=== PATIENT | female | born 1990 | race Caucasian/White ===

== ENCOUNTER → 2021-05-14 15:42 | Outpatient (CLI) | payer BC, SELFPAY ==
[2021-05-14 17:07] LABS: Absolute Lymphocyte Count 2.66 X10^3/uL (0.83-4.51); Absolute Neutrophil Count 4.5 X10^3/uL (2.0-7.7); Basophil# 0.03 X10^3/uL; Basophil% 0.4 % (0-1); Eosinophil# 0.09 X10^3/uL; Eosinophils% 1.1 % (0-5); Hematocrit 40.8 % (37-47); Hemoglobin 12.7 g/dL (12.0-15.0); Lymphocyte # 2.66 X10^3/ul (0.83-4.51); Lymphocyte % 33.5 % (19-41); Mean Corp Hgb Conc 31.1 g/dL (32-36); Mean Corpuscular Hgb 26.9 pg (27.0-32.0); Mean Corpuscular Volume 86.4 fL (81-99); Monocyte# 0.62 X10^3/uL; Monocyte% 7.8 % (0-10); NRBC Flagged by Analyzer 0 % (0-5); Neutrophil # 4.51 X10^3/uL (2.7-7.7); Neutrophil % 56.8 % (47-70); Platelet Count 313 K/mm3 (150-450); RBC Distribution Width CV 12.4 % (11.6-14.6); RBC Distribution Width SD 39.8 fl (35.1-43.9); Red Blood Count 4.72 M/mm3 (4.2-5.4); White Blood Count 7.9 K/mm3 (4.4-11.0)
[2021-05-14 17:33] LABS: ALB/GLOB Ratio 0.9 RATIO (0.9-2.4); AST(SGOT) 11 U/L (15-37); Alanine Aminotransfer ALT/SGPT 17 U/L (13-56); Albumin, Serum 3.6 g/dL (3.2-5.0); Alkaline Phosphatase 51 U/L (45-117); Anion Gap 4 (5-15); BUN 9 mg/dL (7-18); BUN/Creat Ratio 12.6 RATIO (10-20); Calcium,Total 8.8 mg/dL (8.5-10.1); Chloride 106 mmol/L (98-107); Cholesterol 169 mg/dL (200); Creatinine, Serum 0.71 mg/dL (0.55-1.02); EST Glomerular Filtration Rate 103 mL/min (>60); Est Glom Filt Rate - Afr Amer 125 mL/min (>60); Globulin 4.2 g/dL (2.2-4.2); Glucose 88 mg/dL (74-106); High Density Lipoprotein 58 mg/dL; Potassium 3.7 mmol/L (3.5-5.1); Protein, Total 7.8 g/dL (6.4-8.2); Sodium Level 138 mmol/L (136-145); Triglycerides 135 mg/dL; Very Low Density Lipoprotein 27 mg/dL (5-40)
== END ==
PROVIDERS: PCP Internal Medicine; Referring Provider Internal Medicine; Visit Provider Internal Medicine
DX: J30.2 Other seasonal allergic rhinitis (principal); E66.9 Obesity, unspecified
CPT/HCPCS: 36415; 80053; 80061; 85025

== ENCOUNTER → 2021-11-11 | Outpatient (CLI) | payer BC, SELFPAY ==
[2021-11-11 15:14] LABS: Absolute Lymphocyte Count 3.19 X10^3/uL (0.83-4.51); Absolute Neutrophil Count 6.1 X10^3/uL (2.0-7.7); Basophil# 0.03 X10^3/uL; Basophil% 0.3 % (0-1); Eosinophil# 0.05 X10^3/uL; Eosinophils% 0.5 % (0-5); Hematocrit 39.4 % (37-47); Hemoglobin 12.9 g/dL (12.0-15.0); Lymphocyte # 3.19 X10^3/ul (0.83-4.51); Lymphocyte % 32.1 % (19-41); Mean Corp Hgb Conc 32.7 g/dL (32-36); Mean Corpuscular Hgb 27.8 pg (27.0-32.0); Mean Corpuscular Volume 84.9 fL (81-99); Mean Platelet Vol. 11.5 fl (6.2-12.0); Monocyte# 0.57 X10^3/uL; Monocyte% 5.7 % (0-10); NRBC Flagged by Analyzer 0 % (0-5); Neutrophil # 6.07 X10^3/uL (2.7-7.7); Neutrophil % 61.1 % (47-70); Platelet Count 310 K/mm3 (150-450); RBC Distribution Width CV 12.8 % (11.6-14.6); RBC Distribution Width SD 39.3 fl (35.1-43.9); Red Blood Count 4.64 M/mm3 (4.2-5.4); White Blood Count 9.9 K/mm3 (4.4-11.0)
[2021-11-11 16:08] LABS: Thyroid Stim Hormone (TSH) 2.16 uIU/mL (0.358-3.74)
[2021-11-11 16:11] LABS: Vitamin D,25 Hydroxy 28.8 ng/mL
[2021-11-14 15:41] LABS: HPV Reflexed? NOT INDICATED
== END | disposition home or self-care (01) ==
LOC: PAVLAB 14:48
PROVIDERS: PCP Internal Medicine; Referring Provider Nurse Practitioner Women's Health; Visit Provider Nurse Practitioner Women's Health
DX: R53.83 Other fatigue (principal); Z12.4 Encounter for screening for malignant neoplasm of cervix; Z13.29 Encounter for screening for other suspected endocrine disorder
CPT/HCPCS: 36415; 82306; 84443; 85025; 88175; G0145

== ENCOUNTER → 2022-05-30 | Outpatient (CLI) | payer BC, SELFPAY ==
--- NOTE | 2022-05-30 16:00 | RAD_ITS ---
INDICATION: low back pain EXAMINATION/TECHNIQUE: X-RAY - XR Spine Lumbar 2 or 3 Views COMPARISON: None. FINDINGS: VERTEBRAE: Preserved vertebral body height. No fracture. No spondylolisthesis. Exaggerated lumbar lordosis. No significant facet arthropathy. DISCS: Disc spaces are maintained. INCLUDED ABDOMEN: Included bowel gas pattern is non-obstructive. RAD/Lumbar Spine 2 or 3 Views IMPRESSION: Exaggerated lumbar lordosis possibly due to muscle spasm.. No acute fracture or other significant bony pathology Electronically Signed: Reginaldo Haro MD at 21:51 EST ,
--- NOTE | 2022-05-30 16:01 | RAD_ITS ---
INDICATION: right knee pain EXAMINATION/TECHNIQUE: X-RAY - RIGHT XR Knee Complete 4 Views or More 4 VIEWS COMPARISON: None. FINDINGS: SOFT TISSUES: No soft tissue swelling or gas. No radiopaque foreign body. BONES/JOINTS: No acute fracture or subluxation.. Normal alignment. Preservation of the joint space.. No sclerotic or destructive changes observed. RAD/Knee 4 or More Views IMPRESSION: Unremarkable examination. Electronically Signed: Craig Fallon MD at 10:44 EST ,
== END | disposition home or self-care (01) ==
LOC: RAD 16:01
PROVIDERS: PCP Internal Medicine; Visit Provider Physician Assistant
DX: M25.561 Pain in right knee (principal); M54.50 Low back pain, unspecified
CPT/HCPCS: 72100; 73564

== ENCOUNTER → 2022-08-07 | Outpatient (CLI) | payer BC, SELFPAY ==
[2022-08-11 01:06] LABS: Chlamydia By Nucleic Acid AMP Negative (Negative)
[2022-08-11 12:26] LABS: Gonococcus By Nucleic Acid AMP Negative (Negative)
== END | disposition home or self-care (01) ==
LOC: LABSPEC 16:39
PROVIDERS: PCP Internal Medicine; Visit Provider Obstetrics & Gynecology
DX: O09.90 Supervision of high risk pregnancy, unspecified, unspecified trimester (principal); Z3A.00 Weeks of gestation of pregnancy not specified
CPT/HCPCS: 87086; 87088; 87491; 87591

== ENCOUNTER → 2022-09-03 | Outpatient (CLI) | payer BC, SELFPAY ==
[2022-09-03 15:18] LABS: Absolute Lymphocyte Count 2.48 X10^3/uL (0.83-4.51); Absolute Neutrophil Count 6.6 X10^3/uL (2.0-7.7); Basophil# 0.02 X10^3/uL; Basophil% 0.2 % (0-1); Eosinophil# 0.08 X10^3/uL; Eosinophils% 0.8 % (0-5); Hematocrit 36.6 % (37-47); Hemoglobin 11.5 g/dL (12.0-15.0); Lymphocyte # 2.48 X10^3/ul (0.83-4.51); Lymphocyte % 25.3 % (19-41); Mean Corp Hgb Conc 31.4 g/dL (32-36); Mean Corpuscular Hgb 27.4 pg (27.0-32.0); Mean Corpuscular Volume 87.4 fL (81-99); Mean Platelet Vol. 11.9 fl (6.2-12.0); Monocyte# 0.63 X10^3/uL; Monocyte% 6.4 % (0-10); NRBC Flagged by Analyzer 0 % (0-5); Neutrophil # 6.56 X10^3/uL (2.7-7.7); Neutrophil % 66.9 % (47-70); Platelet Count 264 K/mm3 (150-450); RBC Distribution Width CV 13.2 % (11.6-14.6); RBC Distribution Width SD 42.2 fl (35.1-43.9); Red Blood Count 4.19 M/mm3 (4.2-5.4); White Blood Count 9.8 K/mm3 (4.4-11.0)
[2022-09-03 16:00] LABS: Glucose Challenge Gest 1H 50g 113 mg/dL (70-140)
[2022-09-03 17:26] LABS: HIV - WCH Non-Reactive (Nonreactive); Hepatitis B Surface Antigen Non-Reactive (Nonreactive); Hepatitis C Antibody Non-Reactive (Nonreactive); Rubella IgG Reactive (Nonreactive); Syphilis Antibodies Non-reactive
== END | disposition home or self-care (01) ==
LOC: PAVLAB 14:45
PROVIDERS: PCP Internal Medicine; Referring Provider Obstetrics & Gynecology; Visit Provider Obstetrics & Gynecology
DX: O09.90 Supervision of high risk pregnancy, unspecified, unspecified trimester (principal); Z3A.00 Weeks of gestation of pregnancy not specified; Z13.1 Encounter for screening for diabetes mellitus
CPT/HCPCS: 36415; 82950; 85025; 86703; 86762; 86780; 86803; 86850; 86900; 86901; 87340

== ENCOUNTER → 2022-12-09 | Outpatient (CLI) | payer BC, SELFPAY ==
[2022-12-09 15:37] LABS: Absolute Lymphocyte Count 2.02 X10^3/uL (0.83-4.51); Absolute Neutrophil Count 7.8 X10^3/uL (2.0-7.7); Basophil# 0.03 X10^3/uL; Basophil% 0.3 % (0-1); Eosinophil# 0.06 X10^3/uL; Eosinophils% 0.6 % (0-5); Hematocrit 32.5 % (37-47); Hemoglobin 10.3 g/dL (12.0-15.0); Lymphocyte # 2.02 X10^3/ul (0.83-4.51); Lymphocyte % 19.1 % (19-41); Mean Corp Hgb Conc 31.7 g/dL (32-36); Mean Corpuscular Hgb 28.8 pg (27.0-32.0); Mean Corpuscular Volume 90.8 fL (81-99); Mean Platelet Vol. 11.1 fl (6.2-12.0); Monocyte# 0.61 X10^3/uL; Monocyte% 5.8 % (0-10); NRBC Flagged by Analyzer 0 % (0-5); Neutrophil # 7.77 X10^3/uL (2.7-7.7); Neutrophil % 73.5 % (47-70); Platelet Count 273 K/mm3 (150-450); RBC Distribution Width CV 13.7 % (11.6-14.6); RBC Distribution Width SD 46.2 fl (35.1-43.9); Red Blood Count 3.58 M/mm3 (4.2-5.4); White Blood Count 10.6 K/mm3 (4.4-11.0)
[2022-12-09 15:49] LABS: Glucose Challenge Gest 1H 50g 125 mg/dL (70-140)
[2022-12-09 16:52] LABS: HIV - WCH Non-Reactive (Nonreactive); Syphilis Antibodies Non-reactive
== END | disposition home or self-care (01) ==
PROVIDERS: Nurse Practitioner Women's Health; PCP Internal Medicine; Referring Provider Obstetrics & Gynecology; Visit Provider Obstetrics & Gynecology
DX: Z34.90 Encounter for supervision of normal pregnancy, unspecified, unspecified trimester (principal)
CPT/HCPCS: 36415; 82950; 85025; 86703; 86780

== ENCOUNTER → 2022-12-18 | Outpatient (CLI) | payer BC, SELFPAY ==
--- NOTE | 2022-12-18 16:18 | US_ITS ---
INDICATION: Placental location -- 28 Weeks. Evaluate placenta previa. EXAMINATION: US OB Limited 1 Or More Fetus TECHNIQUE: Transabdominal and transvaginal (for optimal evaluation of the fetus) pelvic limited obstetric ultrasound was performed. COMPARISON: None. FINDINGS: Single live intrauterine fetus in breech presentation with heart rate of 136 BPM. Posterior placenta appears intact with no placenta previa. Inferior edge of placenta measures 2.7 cm distance from internal cervical os. Cervix is closed, measuring 3.6 cm length. Amniotic fluid volume within normal limits, deepest vertical pocket measuring 4.1 cm. Maternal adnexa not imaged. biometrics and anatomic survey was not performed. Estimated gestational age of 28 weeks 3 days based on prior dating, with ALLAN of 03/09/2023. US/OB Limited (No Biometrics) IMPRESSION: Single live intrauterine fetus in breech presentation with no placenta previa. Electronically Signed: Roberto Kraft MD at 6:30 EDT ,
== END | disposition home or self-care (01) ==
LOC: US 16:16
PROVIDERS: PCP Internal Medicine; Referring Provider Obstetrics & Gynecology; Visit Provider Obstetrics & Gynecology
DX: O44.03 Complete placenta previa NOS or without hemorrhage, third trimester (principal); Z3A.28 28 weeks gestation of pregnancy
CPT/HCPCS: 76815

== ENCOUNTER → 2023-01-13 | Outpatient (CLI) | payer BC, SELFPAY ==
[2023-01-13 17:01] LABS: Absolute Neutrophil Count 7.9 X10^3/uL (2.0-7.7); Basophil# 0.02 X10^3/uL; Basophil% 0.2 % (0-1); Eosinophil# 0.08 X10^3/uL; Eosinophils% 0.7 % (0-5); Hematocrit 34.6 % (37-47); Hemoglobin 11.2 g/dL (12.0-15.0); Lymphocyte % 20.3 % (19-41); Mean Corp Hgb Conc 32.4 g/dL (32-36); Mean Corpuscular Hgb 28.8 pg (27.0-32.0); Mean Corpuscular Volume 88.9 fL (81-99); Mean Platelet Vol. 11.8 fl (6.2-12.0); Monocyte# 0.93 X10^3/uL; Monocyte% 8.2 % (0-10); NRBC Flagged by Analyzer 0 % (0-5); Neutrophil # 7.91 X10^3/uL (2.7-7.7); Neutrophil % 69.9 % (47-70); Platelet Count 274 K/mm3 (150-450); RBC Distribution Width CV 13.7 % (11.6-14.6); RBC Distribution Width SD 44.2 fl (35.1-43.9); Red Blood Count 3.89 M/mm3 (4.2-5.4); White Blood Count 11.3 K/mm3 (4.4-11.0)
== END | disposition home or self-care (01) ==
LOC: LAB 16:12
PROVIDERS: Nurse Practitioner Women's Health; PCP Internal Medicine; Referring Provider Obstetrics & Gynecology; Visit Provider Obstetrics & Gynecology
DX: D64.9 Anemia, unspecified (principal)
CPT/HCPCS: 36415; 85025

== ENCOUNTER → 2023-02-13 | Outpatient (CLI) | payer BC, SELFPAY | END | disposition home or self-care (01) | LOC: LABSPEC 16:19 | PROVIDERS: PCP Internal Medicine; Referring Provider Obstetrics & Gynecology; Visit Provider Obstetrics & Gynecology | DX: O09.90 Supervision of high risk pregnancy, unspecified, unspecified trimester (principal); Z3A.00 Weeks of gestation of pregnancy not specified | CPT/HCPCS: 87077; 87081; 87186 ==

== ENCOUNTER 2023-03-10 06:55 | Inpatient (IN) | payer BC, SELFPAY ==
[2023-03-10] VITALS (51 sets, daily range): BP systolic 101–135; BP diastolic 60–89; PULSE 63–116; TEMP 36.2–37.2; O2SAT 78–100; BMI 37.0
[2023-03-10] MEDS: Lactated Ringers 1,000 ML 50 ML IV (07:35)
[2023-03-10 07:58] LABS: Absolute Lymphocyte Count 2.43 X10^3/uL (0.83-4.51); Absolute Neutrophil Count 8.2 X10^3/uL (2.0-7.7); Basophil# 0.04 X10^3/uL; Basophil% 0.4 % (0-1); Eosinophil# 0.05 X10^3/uL; Eosinophils% 0.4 % (0-5); Hematocrit 35.4 % (37-47); Hemoglobin 11.2 g/dL (12.0-15.0); Lymphocyte # 2.43 X10^3/ul (0.83-4.51); Lymphocyte % 21.3 % (19-41); Mean Corp Hgb Conc 31.6 g/dL (32-36); Mean Corpuscular Hgb 28.2 pg (27.0-32.0); Mean Corpuscular Volume 89.2 fL (81-99); Mean Platelet Vol. 12.1 fl (6.2-12.0); Monocyte# 0.66 X10^3/uL; Monocyte% 5.8 % (0-10); NRBC Flagged by Analyzer 0 % (0-5); Neutrophil # 8.15 X10^3/uL (2.7-7.7); Neutrophil % 71.5 % (47-70); Platelet Count 231 K/mm3 (150-450); RBC Distribution Width CV 13.6 % (11.6-14.6); RBC Distribution Width SD 44.4 fl (35.1-43.9); Red Blood Count 3.97 M/mm3 (4.2-5.4); White Blood Count 11.4 K/mm3 (4.4-11.0)
--- NOTE | 2023-03-10 07:59 | HP.PCM.OB_ITS ---
HPI - General General Date of Admission: 03/10/23 Date of Service: 03/10/23 HPI Narrative SHAWNEE AHUJA, is a 32 F 40.1 weeks who presents for elective IOL Maternal Data Information ALLAN Calculator Estimated Delivery Date Method Current WG Current Estimate 03/09/23 LMP (Certain) 40w 1d Final ALLAN: 03/09/23 Final ALLAN Source: US >20 weeks Gestational age: 40.1 [facility] Medical History Anemia Obesity (BMI 30-39.9) Positive self-administered antigen test for COVID-19 Seasonal allergies Home Medications cetirizine 10 mg capsule (Zyrtec) 10 mg PO DAILY PRN allergies 05/14/21 [History Last Taken 03/09/23 19:00 10 mg] multivitamin (One Daily Multivitamin tablet) 1 tab PO DAILY 05/27/22 [History Last Taken 03/09/23 19:00 1 TAB] nystatin 100,000 unit/gram topical cream 1 applic topical BID #30 grams 02/16/23 [Rx Last Taken Unknown] aspirin 81 mg tablet,delayed release (Adult Low Dose Aspirin) 81 mg PO DAILY 03/10/23 [History Last Taken 03/09/23 19:00 81 mg] ferrous sulfate 325 mg (65 mg iron) tablet (Feosol) 325 mg PO DAILY anemia 03/10/23 [History Last Taken Unknown] polyethylene glycol 3350 17 gram oral powder packet (ClearLax) 17 g PO DAILY constipation 03/10/23 [History Last Taken 03/09/23 19:00 17 g] Allergy/AdvReac Type Severity Reaction Status Date / Time Penicillins Allergy Unknown Hives Verified 03/10/23 07:28 Family History Mother Heart disease Pacemaker Father Hypertension Grandmother Brain aneurysm Surgical History History of wisdom tooth extraction Social History adopted: No household members: spouse housing: house current occupational status: employed 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 pets and animals: Yes ( does litter box) pets and animals: cat(s) and dog(s) history of recent travel: No sexually active: Yes Smoking Status: Never smoker alcohol intake: current alcohol intake frequency: a few times a week details: not while pregnanct substance use type: does not use well-balanced diet: about half the time caffeine: Yes Type: coffee Number of servings: 1 eating out: 1-3 times/week what type of physical activity do you participate in: walking frequency: 1-2 times per week seatbelt use: always do you feel safe at home: Yes additional social history: - Rivera History 1 Elective abortions Hx Para 0 Spontaneous abortions Hx # Term Pregnancies Ectopic pregnancies Hx # Pregnancies Multiple births # of living children Visit Details Expected Delivery Route/Plan Labor Preferences- CB/BF classes: encouraged labor support person: Rivera labor intervention preferences: none pain management options preferred: epidural, may nitrous first cut cord/dad catch: maybe cord : yes PP control planned: nfp discussed possible routes of delivery and associated risks: discussed possible delivery modalities and possible indications for each including R/B/A of , VAVD, and CS. questions answered. special requests: none Plans Covid status: discussed Flu vaccine: given Tdap vaccine: given Rhogam: na LARC form signed: declined movement and labor precautions reviewed. Problem list reviewed and updated with the most current plan of care details and appropriate orders placed. Relevant counseling for the gestational age provided. Continue routine care and follow up unless otherwise noted in visit notes/problem list details OB Flowsheet Initial Weight: Not Recorded Date -?-?-?-?-?-?-?-?-?-?-?-?- EGA Weight BP Urine Prot -?-?-?-?-?-?-?-?-?-?-?-?- Glucose FHR FuHt Pres Dilation -?-?-?-?-?-?-?-?-?-?-?-?- Effaced St Visit Note 08/07/22 -?-?-?-?-?-?-?-?-?-?-?-?- 9w 3d 210 lb 6 oz 125/85 -?-?-?-?-?-?-?-?-?--?-?-?- -?-?-?-?-?-?-?-?-?-?-?-?- SM- CRL cons wit h LMP 09/03/22 -?-?-?-?-?-?-?-?-?-?-?-?- 13w 2d 210 lb 2 oz 116/81 Nega tive -?-?-?-?-?-?-?-?-?-?-?-?- Negative 156 -?-?-?-?-?-?-?-?-?-?-?-?- LC- no vb/crampi ng. increasing GERD, has used tums, dietary changes. will use Prilosec LC- no vb/cramping. increasi ng GERD, has used tums, dietary changes. will use Prilosec as needed. will schedule anatomy scan. 10/15/22 -?-?-?-?-?-?-?-?-?-?-?-?- 19w 2d 210 lb 132/82 Negative -?-?-?-?-?-?-?-?-?-?-?-?- Negative 149 -?-?-?-?-?-?-?-?-?-?-?-?- MH-NO VB. No FM yet. MFM anatomy US tomorrow. Discussed need for baby ASA and growth US and agrees to proceed. 11/10/22 -?-?-?-?-?-?-?-?-?-?-?-?- 23w 0d 212 lb 4 oz 118/80 Nega tive -?-?-?-?-?-?-?-?-?-?-?-?- Negative 152 -?-?-?-?-?-?-?-?-?-?-?-?- MH-No Vb, LOF. G ood FM. Denies concerns 12/09/22 -?-?-?-?-?-?-?-?-?-?-?-?- 27w 1d 214 lb 4 oz 109/75 Nega tive -?-?-?-?-?-?-?-?-?-?-?-?- Negative 140 27 -?-?-?-?-?-?-?-?-?-?-?-?- SM- no vb lof go od fm no regular ctx 01/01/23 -?-?-?-?-?-?-?-?-?-?-?-?- 30w 3d 216 lb 6 oz 115/76 Nega tive -?-?-?-?-?-?-?-?-?-?-?-?- Negative 144 31 Breech -?-?-?-?-?-?-?-?-?-?-?-?- JV- no lof, vagi nal bleeding,or dec fm. resolved previa. has us for covid at 32 weeks we discussed canceling and keeping 36 weeks only. she will talk with . rpt cbc next visit 01/13/23 -?-?-?-?-?-?-?-?-?-?-?-?- 32w 1d 217 lb 4 oz 104/71 Nega tive -?-?-?-?-?-?-?-?-?-?-?-?- Negative 140 32 -?-?-?-?-?-?-?-?-?-?-?-?- SM- no vb lof go od fm no regular ctx took childbirth classes 02/04/23 -?-?-?-?-?-?-?-?-?-?-?-?- 35w 2d 220 lb 8 oz 119/78 Nega tive -?-?-?-?-?-?-?-?-?-?-?-?- Negative 140 36 Cephalic -?-?-?-?-?-?-?-?-?-?-?-?- JV- no lof, vagi nal bleeding, or dec fm, lots of hiccups, signed larc today. JV- no lof, vaginal bleeding , or dec fm, lots of hiccups, signed larc today. tdap 02/13/23 -?-?-?-?-?-?-?-?-?-?-?-?- 36w 4d 219 lb 113/77 -?-?-?-?-?-?-?-?-?-?-?-?- 140 37 Cephalic -?-?-?-?-?-?-?-?-?-?-?-?- Sm- no vb lof go od fm no regular ctx gbs done discussed delivery preferences 02/16/23 -?-?-?-?-?-?-?-?-?-?-?-?- 37w 0d 221 lb 2 oz 112/77 Nega tive -?-?-?-?-?-?-?--?-?-?-?-?- Negative 145 37 Cephalic -?-?-?-?-?-?-?-?-?-?-?-?- JV- declines pel widl exam today. has some yeast growth under breasts. no complaints other than some round ligament pain. Gbs is positive. 02/25/23 -?-?-?-?-?-?-?-?-?-?-?-?- 38w 2d 220 lb 2 oz 111/74 Nega tive -?-?-?-?-?-?-?-?-?-?-?-?- Negative 138 38 Cephalic 1 -?-?-?-?-?-?-?-?-?-?-?-?- 50 -3 LC-no vb/c tx/lof. good fm. job changed to start on the . would like an IOL if favorable on the . plan for membrane sweep next visit. 03/05/23 -?-?-?-?-?-?-?-?-?-?-?-?- 39w 3d 224 lb 2 oz 104/82 Trac e -?-?-?-?-?-?-?-?-?-?-?-?- Negative 140 39 Cephalic 2 -?-?-?-?-?-?-?-?-?-?-?-?- 60 -2 SM- no vb lof good fm no regular ctx discussed membrane sweeping NST FHR Rate Baby A Baseline: 145 Variability:: Moderate Accelerations:: 15 x 15 Decelerations:: None NST Reactive:: Yes FHR Category:: Category I Uterine Activity:: irregular ROS Constitutional Constitutional: Denies change in weight, fatigue, fever(s), headache(s), poor appetite or weakness Eyes Eyes: Denies blurry vision, change in vision, floaters, seeing flashes or spots in vision ENT HEENT: Denies dizziness, headache(s), loss taste/smell or sore throat Cardiovascular Cardiovascular: Denies chest pain, dizziness, dyspnea, irregular heart rhythm, lightheadedness, palpitations or rapid heart rate Respiratory/Chest Respiratory/Chest: Denies change in mental status, chest tightness, cough, dyspnea or breast pain Gastrointestinal Gastrointestinal: Denies anorexia, chewing difficulty, constipation, diarrhea or weight changes Genitourinary Genitourinary: Denies difficulty urinating, dysuria, flank pain, genital pain, urinary frequency or urinary urgency Musculoskeletal Musculoskeletal: Denies back pain, difficulty walking, extremity pain, joint pain, muscle cramps or muscle weakness Integumentary Integumentary: Denies lesions or unusual bruising Neurologic Neurologic: Denies abnormal movements, abnormal speech, dizziness, numbness, seizure-like activity, syncope or weakness Psychiatric Psychiatric: Denies behavioral changes, change in appetite, confusion, depression, homicidal ideation, suicidal ideation or suicidal thoughts Endocrine Endocrinology: Denies excessive sweating, polydipsia or polyuria Hematologic/Lymphatic Hematologic/Lymphatic: Denies anemia Allergic/Immunologic Allergic/Immunologic: Denies itchy eyes, lip swelling, throat swelling, tongue swelling or wheezing Vital Signs Vital Signs Vital Signs: 03/10/23 07:25 03/10/23 07:25 03/10/23 07:25 Pulse Rate 116 H Blood Pressure 123/84 H BP Systolic 123 BP Diastolic 84 Pulse Ox 81 Weight Weight: 222 lb 7.143 oz Body Mass Index (BMI) 37.0 Physical Exam Const alert, oriented x3 and no apparent distress General Appearance: cooperative Orientation / Consciousness: awake HEENT normocephalic Neck full ROM Lymph Lymphatic: no lymphadenopathy noted Chest inspection of chest normal Resp normal respiratory effort and normal air movement Effort and Inspection: able to speak in complete sentences and symmetric chest movement GI soft to palpation and non-tender Inspection: gravid Palpation: soft; Negative for tender external exam normal Manual OB Exam: presentation cephalic, dilated 3, effaced 70 and station - 2 Back/Spine normal to inspection Extremity normal to inspection and full ROM Skin no rashes or lesions noted Psych mental status grossly normal Appearance: grossly normal Speech: normal speech Labs Labs Labs: Blood Type O POSITIVE Antibody Screen NEGATIVE Hct 35.4 % (37-47) L Hgb 11.2 g/dL (12.0-15.0) L Obstetrics Ultrasound Syphilis Total Ab Non-reactive Rubella IgG Antibody Reactive (Nonreactive) Hep Bs Antigen Non-Reactive (Nonreactive) Hepatitis C Antibody Non-Reactive (Nonreactive) Chlamydia DNA (ANGE) Negative (Negative) N.gonorrhoeae DNA (ANGE) Negative (Negative) HIV 1&2 Antibody Non-Reactive (Nonreactive) Glucose 1 Hr 50 gm 125 mg/dL (70-140) Assessment & Plan (1) Elective induction of labor planned: PLAN: Patient presents IOL, plan management for with pitocin/AROM. Pain management: plans epidural. GBS positive- vanco. Management of any complications: none I have reviewed the [facility] and made any clinically relevant updates. (2) Positive GBS test: COMMENT: vanco in labor (3) Anemia: COMMENT: add Fe and recheck CBC in 4 wks/improved (4) Back pain: QUALIFIERS: Back pain location: low back pain Chronicity: acute Back pain laterality: right Sciatica presence: without sciatica Qualified Code(s): M54.50 - Low back pain, unspecified (5) Supervision of high risk , antepartum: COMMENT: [id number] ALLAN 03/09/23 girl Rivera (6) : QUALIFIERS: Weeks of gestation: 39 weeks Qualified Code(s): Z3A.39 - 39 weeks gestation of COMMENT: anatomy nl, bowel brightening noted. follow up/growth US in 4 weeks. NIPT and carrier screening declined. (7) Obesity affecting : COMMENT: 1hr GTT Charges/Coding Multi Select Codes Urinary/Genital Urinary/Genital CPT Codes: No Charge
[2023-03-10] MEDS: Oxytocin 15 Units/NS 250ml 15 UNITS/250 ML IV.SOLN 2 UNITS IV (08:25)
[2023-03-10] MEDS: Vancomycin HCl 2,000 MG in 0.9% Normal Saline (500mL Bag) 500 ML 250 MG IV ×2 (08:25→16:29)
[2023-03-10 09:00] LABS: Syphilis Antibodies Non-reactive
[2023-03-10] MEDS: LACTATED RINGERS 500 ML 999 ML IV (13:28)
[2023-03-10] MEDS: fentaNYL-bupivacaine (epidural) 100 ML BAG EPIDURAL ×3 (13:54→22:31)
--- NOTE | 2023-03-10 15:47 | PN_ITS ---
Progress Note comfortable with epidural current tracing: FHT: 1345 Moderate variability reactive no decelerations category I tracing [place]: 2-3 minute Contractions Membranes: AROM at 1540 clear fluid SVE: / reviewed tracing abnormalities since last note: none A/P: Continue with position changes Titrate pitocin per protocol Epidural per anesthesia Vancomycin for GBS prophylaxis Anticipate Dr Grissom aware of plan and agrees with plan of care Assessment & Plan Assessment/Plan (1) Elective induction of labor planned: (2) Positive GBS test: (3) Anemia: (4) Supervision of high risk , antepartum: (5) : QUALIFIERS: Weeks of gestation: 39 weeks Qualified Code(s): Z3A.39 - 39 weeks gestation of (6) Obesity affecting : Multi Select Codes Urinary/Genital Urinary/Genital CPT Codes: No Charge
[2023-03-10] MEDS: Lactated Ringers 1,000 ML 200 ML IV (18:10)
--- NOTE | 2023-03-10 19:32 | PCM.PN.BLA ---
Progress Note comfortable with epidural current tracing: FHT: 115 Moderate variability reactive early decelerations category I tracing IUPC: 1.5-2.5 minute Contractions Membranes: rupture SVE: 7/-1 A/P: Continue with position changes Titrate pitocin per protocol Epidural per anesthesia Vanco for GBS prophylaxis Anticipate Dr Grissom aware of plan and agrees with plan of care Assessment & Plan Assessment/Plan (1) Elective induction of labor planned: (2) Positive GBS test: (3) Anemia: (4) Supervision of high risk , antepartum: (5) : QUALIFIERS: Weeks of gestation: 39 weeks Qualified Code(s): Z3A.39 - 39 weeks gestation of (6) Obesity affecting : Multi Select Codes Urinary/Genital Urinary/Genital CPT Codes: No Charge
--- NOTE | 2023-03-10 20:01 | NURSING ---
intermittent catheterization.
[2023-03-10] MEDS: Mag Hydrox/Al Hydrox/Simeth 30 ML UDC PO (22:31)
[2023-03-10] MEDS: 0.9% Saline Lock 10 ML Syringe IV (23:01)
[2023-03-10] MEDS: Ondansetron 4 MG/2 ML Vial IV (23:01)
[2023-03-10] MEDS: Oxytocin 10 UNITS/ML Vial IM (23:32)
--- NOTE | 2023-03-10 23:54 | NURSING ---
kurtz cath was removed at 2318 per kwkellie MARTINEZ. 200 cc noted clear yellow urine. later, following delivery, [facility] another kurtz due to the nature of the tear. that kurtz placed at 2330 and will remain intact.
[2023-03-11] VITALS (35 sets, daily range): BP systolic 75–123; BP diastolic 43–82; PULSE 76–111; RESP 16–18; TEMP 36.2–37.7; O2SAT 94–100
[2023-03-11] MEDS: Oxytocin 15 Units/NS 250ml 15 UNITS/250 ML IV.SOLN 83 UNITS IV
--- NOTE | 2023-03-11 00:07 | EX.PCM.OBRPT ---
Assessment & Plan (1) Vaginal delivery: COMMENT: KW 40.1 Girl (2) Elective induction of labor planned: (3) Positive GBS test: COMMENT: vanco in labor (4) Anemia: COMMENT: add Fe and recheck CBC in 4 wks/improved (5) Supervision of high risk , antepartum: COMMENT: [id number] ALLAN 03/09/23 girl Rivera (6) : QUALIFIERS: Weeks of gestation: 39 weeks Qualified Code(s): Z3A.39 - 39 weeks gestation of COMMENT: anatomy nl, bowel brightening noted. follow up/growth US in 4 weeks. NIPT and carrier screening declined. (7) Obesity affecting : COMMENT: 1hr GTT Maternal Data Information ALLAN Calculator Estimated Delivery Date Method Current WG Current Estimate 03/09/23 LMP (Certain) 40w 2d Final ALLAN: 03/09/23 Final ALLAN Source: US >20 weeks Gestational age: 40.1 Vaginal Delivery Maternal Presentation Maternal Presentation: Elective Induction Maternal Presentation: Progressed well to 10cm dilated and made steady progress with effective maternal pushing. Delivered the head in REEMA presentation. The head was delivered atraumatically and a tight nuchal cord was identified and infant was somersaulted through without difficulty. The anterior and posterior shoulders delivered without complication followed by the rest of the infant and the infant was placed on the maternal abdomen. Delayed cord clamping was employed for approximately 2 minutes. Cord was clamped and cut and gentle traction was applied to the cord and the placenta delivered spontaneously. Immediately following, it was noted to be intact with a 3 vessel cord. The perineum and vagina were inspected and noted to have a first degree laceration which was repaired with 3-0 Vicryl in the usual fashion and periureteral laceration. Urinary catheter was placed and Dr Grissom consulted. Agreed with repair . EBL was 400cc. Patient and infant tolerated delivery well. Apgars 8/8. Dr Grissom notified of vaginal delivery and orders reviewed. Physician agrees with current plan of care. Type of Induction: Pitocin Operative Information Date of Procedure: 03/10/23 Pre-Operative Diagnosis: See AP comments Post-Operative Diagnosis: Same Surgery / Procedure Performed: Spontaneous Vaginal Delivery construction field engineer #1: Kayy Harrison Type of Anesthesia: Epidural Estimated Blood Loss: 400 Time of Delivery: 23:21 Findings Presentation: REEMA Amniotic Membrane Rupture Type: Artificial Amniotic Fluid Description: Clear Placental Delivery Description: Spontaneous Placenta Disposition: [facility] Cord Vessel Description: 3 Vessels Cord Entanglement: Around neck x 1, tight Infant A Gender: Female (1 minute): 8 (5 minute): 8 Delayed Cord Clamping: Yes Post Vaginal Delivery Medications Given After Delivery: IV Pitocin and IM Pitocin Episiotomy Description: None Laceration: Periurethral Extnsion/lac and 1st degree Complication Complications: None Multi Select Codes Urinary/Genital Urinary/Genital CPT Codes: 54923 Vaginal Delivery [facility]
[2023-03-11] MEDS: Methylergonovine 0.2 MG/ML Ampul IM (00:12)
[2023-03-11] MEDS: Lactated Ringers 1,000 ML 999 ML IV (00:15)
--- NOTE | 2023-03-11 00:19 | DCINST_ITS ---
Discharge Instructions Diet Discharge Diet: No restrictions Activity Discharge Activity: Return to Normal Activity May resume sexual activity in: 6-8 weeks Dressing / Incision Call your doctor if you observe: Fever of 101 or Higher, Coldness, Increased Pain, Numbness or Tingling, Change in Color, Inability to urinate, Inability to have a bowel movement, Using more than 1 pad per hour, Shortness of breath, Dizziness, Fainting spells, Swelling in the ankles, Chest pain, Increased palpitations (irregular heartbeat), Calf discomfort and Uncontrolled pain Follow Up Care Please Follow Up With: Kayy Harrison CNM When: Please call the office to schedule your follow up appointment in 6 weeks. If you had high blood pressure please call to schedule an appointment in 2 weeks. Test Results: Test results from this visit will be discussed in further detail at your follow- up appointment, if applicable. Discharge Plan Admission Admit Date/Time: 03/10/23 06:55 Attending Provider: Kayy Harrison Primary Care Provider: Myriam Walton Discharge Orders/Prescriptions Prescriptions: No Action Zyrtec 10 mg capsule 10 mg PO DAILY PRN (Reason: allergies) multivitamin [One Daily Multivitamin] Tablet 1 tab PO DAILY nystatin 100,000 unit/gram cream 1 applic topical BID Qty: 30 0RF aspirin [Adult Low Dose Aspirin] 81 mg tablet,delayed release (DR/EC) 81 mg PO DAILY polyethylene glycol 3350 [ClearLax] 17 gram powder in packet 17 g PO DAILY ferrous sulfate [Feosol] 325 mg (65 mg iron) tablet 325 mg PO DAILY Referrals / Follow Up: Myriam Walton MD [Primary Care Provider] -
[2023-03-11 00:55] LABS: Absolute Lymphocyte Count 1.98 X10^3/uL (0.83-4.51); Basophil# 0.05 X10^3/uL; Basophil% 0.2 % (0-1); Eosinophil# 0.04 X10^3/uL; Eosinophils% 0.2 % (0-5); Hematocrit 30.4 % (37-47); Hemoglobin 9.4 g/dL (12.0-15.0); Lymphocyte # 1.98 X10^3/ul (0.83-4.51); Lymphocyte % 8.8 % (19-41); Mean Corp Hgb Conc 30.9 g/dL (32-36); Mean Corpuscular Hgb 28.7 pg (27.0-32.0); Mean Corpuscular Volume 92.7 fL (81-99); Mean Platelet Vol. 12.4 fl (6.2-12.0); Monocyte# 1.32 X10^3/uL; Monocyte% 5.9 % (0-10); NRBC Flagged by Analyzer 0 % (0-5); Neutrophil # 18.99 X10^3/uL (2.7-7.7); Neutrophil % 84.2 % (47-70); Platelet Count 211 K/mm3 (150-450); RBC Distribution Width CV 13.8 % (11.6-14.6); RBC Distribution Width SD 46.6 fl (35.1-43.9); Red Blood Count 3.28 M/mm3 (4.2-5.4); White Blood Count 22.5 K/mm3 (4.4-11.0)
--- NOTE | 2023-03-11 02:45 | NURSING ---
kurtz cath placed via [facility] at 2330 was removed by her, as well, at 2358 03/10/23. 125 cc noted.
--- NOTE | 2023-03-11 02:49 | NURSING ---
see connect charting system for provider communications for recovery period on this pt.
[2023-03-11] MEDS: 0.9% Saline Lock 10 ML Syringe IV (03:16)
--- NOTE | 2023-03-11 03:28 | NURSING ---
report given to bladimir DARDEN. that rn to assume care of couplet at this time.
[2023-03-11] MEDS: Acetaminophen 500 MG Tablet 1000 MG PO ×2 (03:40→20:01)
[2023-03-11 04:36] LABS: Reflex Lactate? Y
[2023-03-11 05:42] LABS: Absolute Lymphocyte Count 1.44 X10^3/uL (0.83-4.51); Absolute Neutrophil Count 16.9 X10^3/uL (2.0-7.7); Basophil# 0.04 X10^3/uL; Basophil% 0.2 % (0-1); Eosinophil# 0.02 X10^3/uL; Eosinophils% 0.1 % (0-5); Hematocrit 29.5 % (37-47); Hemoglobin 9.7 g/dL (12.0-15.0); Lymphocyte # 1.44 X10^3/ul (0.83-4.51); Lymphocyte % 7.4 % (19-41); Mean Corp Hgb Conc 32.9 g/dL (32-36); Mean Corpuscular Hgb 29.2 pg (27.0-32.0); Mean Corpuscular Volume 88.9 fL (81-99); Monocyte# 0.96 X10^3/uL; Monocyte% 4.9 % (0-10); NRBC Flagged by Analyzer 0 % (0-5); Neutrophil # 16.94 X10^3/uL (2.7-7.7); Neutrophil % 86.9 % (47-70); Platelet Count 192 K/mm3 (150-450); RBC Distribution Width CV 13.4 % (11.6-14.6); RBC Distribution Width SD 43.7 fl (35.1-43.9); Red Blood Count 3.32 M/mm3 (4.2-5.4); White Blood Count 19.5 K/mm3 (4.4-11.0)
[2023-03-11 06:11] LABS: Lactic Acid 2.5 mmol/L (0.4-1.9)
--- NOTE | 2023-03-11 07:49 | PN.OBGYN_ITS ---
Subjective Subjective Patient doing well without complaints. Tolerating PO. Ambulating and voiding without difficulty. Feeding well. Denies chest pain, shortness of breath, calf pain/swelling, fevers, chills, lightheadedness. Objective Data Objective Data Vital Signs: Vital Signs Temp Pulse Resp BP Pulse Ox 98.2 F 97 18 123/66 H 99 03/11/23 03:30 03/11/23 03:30 03/11/23 03:30 03/11/23 03:30 03/11/23 02:08 Weight: 222 lb 7.143 oz Body Mass Index (BMI) 37.0 Intake & Output: Intake and Output for Last 24 Hours 03/09/23 03/10/23 03/11/23 23:59 23:59 23:59 Intake Total 4030.00 / 4030.00 1250 / 1250 Output Total 1425 / 1425 1000 / 1000 Balance 2605.00 / 2605.00 250 / 250 Lab / Micro Data 03/11/23 05:25 Labs: Laboratory Results - last 24 hr 03/10/23 07:35: WBC 11.4 H, RBC 3.97 L, Hgb 11.2 L, Hct 35.4 L, MCV 89.2, MCH 2 8.2, MCHC 31.6 L, RDW Std Deviation 44.4 H, RDW Coeff of Daniela 13.6, Plt Count 231, MPV 12.1 H, Immature Gran % (Auto) 0.600, Neut % (Auto) 71.5 H, Lymph % (Auto) 21.3, [place] % (Auto) 5.8, Eos % (Auto) 0.4, Baso % (Auto) 0.4, Absolute Neuts (auto) 8.2 H, Absolute Lymphs (auto) 2.43, Nucleated RBC % 0, Syphilis Total Ab Non-reactive, Blood Type O POSITIVE, Antibody Screen NEGATIVE 03/11/23 00:30: WBC 22.5 H, RBC 3.28 L, Hgb 9.4 L, Hct 30.4 L, MCV 92.7, MCH 28.7, MCHC 30.9 L, RDW Std Deviation 46.6 H, RDW Coeff of Daniela 13.8, Plt Count 211, MPV 12.4 H, Immature Gran % (Auto) 0.700, Neut % (Auto) 84.2 H, Lymph % (Auto) 8.8 L, [place] % (Auto) 5.9, Eos % (Auto) 0.2, Baso % (Auto) 0.2, Absolute Neuts (auto) 19.0 H, Absolute Lymphs (auto) 1.98, Nucleated RBC % 0, Lactic Acid 3.0 H* 03/11/23 05:25: WBC 19.5 H, RBC 3.32 L, Hgb 9.7 L, Hct 29.5 L, MCV 88.9, MCH 29.2, MCHC 32.9 D, RDW Std Deviation 43.7, RDW Coeff of Daniela 13.4, Plt Count 192, MPV 12.0, Immature Gran % (Auto) 0.500, Neut % (Auto) 86.9 H, Lymph % (Auto) 7.4 L, [place] % (Auto) 4.9, Eos % (Auto) 0.1, Baso % (Auto) 0.2, Absolute Neuts (auto) 16.9 H, Absolute Lymphs (auto) 1.44, Nucleated RBC % 0, Lactic Acid 2.5 H* Physical Exam Const alert and oriented x3 HEENT normocephalic Eyes PERRL Neck full ROM Resp normal respiratory effort GI soft to palpation GI Narrative: FF below U Assessment & Plan (1) Vaginal delivery: COMMENT: KW 40.1 Girl (name undecided) PLAN: Plan s/p PPD # 1 1. routine post delivery care 2. breast feeding- support given 3. rh positive 4. rubella immune
[2023-03-11] MEDS: Ibuprofen 600 MG Tablet PO ×2 (08:12→15:59)
[2023-03-11 09:39] LABS: Reflex Lactate? Y
[2023-03-11 10:35] LABS: Lactic Acid 1.8 mmol/L (0.4-1.9)
[2023-03-11] MEDS: Senna/Docusate Sodium 1 Tablet PO (17:41)
[2023-03-12 00:10] VITALS: BP 122/82; PULSE 72; RESP 18; TEMP 36.6; O2SAT 97
[2023-03-12 02:10] VITALS: BP 121/67; PULSE 77; RESP 18; TEMP 36.6; O2SAT 96
--- NOTE | 2023-03-12 07:19 | PCM.PN.OB ---
Subjective Subjective Patient doing well without complaints. Tolerating PO. Ambulating and voiding without difficulty. feeding well. Denies chest pain, shortness of breath, calf pain/swelling, fevers, chills, lightheadedness. Objective Data Objective Data Vital Signs: Vital Signs Temp Pulse Resp BP Pulse Ox O2 Del Method 97.9 F 77 18 121/67 H 96 Room Air 03/12/23 02:10 03/12/23 02:10 03/12/23 02:10 03/12/23 02:10 03/12/23 02:10 03/12/23 02:10 Oxygen Delivery Method Room Air Weight: 222 lb 7.143 oz Body Mass Index (BMI) 37.0 Intake & Output: Intake and Output for Last 24 Hours 03/10/23 03/11/23 03/12/23 23:59 23:59 23:59 Intake Total 4030.00 / 4030.00 1250 / 1250 Output Total 1425 / 1425 1000 / 1000 Balance 2605.00 / 2605.00 250 / 250 Lab / Micro Data 03/11/23 05:25 Labs: Laboratory Results - last 24 hr 03/11/23 09:55: Lactic Acid 1.8 ROS Constitutional Constitutional: Reports systems reviewed and no addt'l complaints, except as documented Cardiovascular Cardiovascular: Reports systems reviewed and no addt'l complaints, except as documented Respiratory/Chest Respiratory/Chest: Reports systems reviewed and no addt'l complaints, except as documented Gastrointestinal Gastrointestinal: Reports systems reviewed and no addt'l complaints, except as documented Physical Exam Const alert, oriented x3 and no apparent distress HEENT Head and Scalp: atraumatic Resp normal respiratory effort GI soft to palpation and non-tender Bimanual Exam - Vag & Uterus: uterus non-tender Uterus Palpation: uterus fundus firm (below Umbilicus) Assessment & Plan (1) Vaginal delivery: COMMENT: KW 40.1 Girl (name undecided) PLAN: Plan s/p PPD # 2 1. routine post delivery care 2. breast feeding- support given 3. rh positive 4. rubella immune
--- NOTE | 2023-03-12 07:20 | NURSING ---
bedside report given to Karen Curtis RN who is assuming care of pt at this time This RN reviewed and agrees with all documentation done by Hank Enrique student nurse.
[2023-03-12 08:33] VITALS: BP 114/69; PULSE 83; RESP 18; TEMP 36.7; O2SAT 97
[2023-03-12] MEDS: Ibuprofen 600 MG Tablet PO (08:36)
== END 2023-03-12 11:40 | disposition home or self-care (01) | DRG 807 ==
PROVIDERS: Admitting Provider Obstetrics & Gynecology; PCP Internal Medicine; Referring Provider Obstetrics & Gynecology; Visit Provider Advanced Practice Midwife
DX: O69.2XX0 Labor and delivery complicated by other cord entanglement, with compression, not applicable or unspecified (principal); Z37.0 Single live birth; O70.0 First degree perineal laceration during delivery; O99.214 Obesity complicating childbirth; O99.02 Anemia complicating childbirth; O99.824 Streptococcus B carrier state complicating childbirth; Z3A.40 40 weeks gestation of pregnancy; Z79.82 Long term (current) use of aspirin; Z86.16 Personal history of COVID-19
CPT/HCPCS: 59025; 59050; 83605; 85025; 86780; 86850; 86900; 86901; 99221; J7040; J7120; A4216; G0378; J2405